=== PATIENT | male | born 1995 | race Caucasian/White ===

== ENCOUNTER 2023-01-04 20:03 | Emergency (ER) | payer SELFPAY ==
[~2023-01-04] VITALS: Ht 175.2 cm; Wt 127.0 kg
[~2023-01-04 20:03] MED LIST: OXYC-12 PO
[2023-01-04] MEDS ORDERED: Tetanus/Diphtheria/Pertussis (Acell) ADULT Vaccine 0.5 ML IM ONE (20:15)
--- NOTE | 2023-01-04 20:31 | ED Lower Extremity ---
General Chief Complaint: Laceration Stated Complaint: LACERATION Source: patient History of Present Illness Date Seen by Provider: Jan 04, 2023 Time Seen by Provider: 20:06 Initial Comments PT ARRIVES VIA EMS FROM HOME PT WITH LACERATION TO LEFT LOWER LEG PT STATES HE WAS CUTTING WOOD WITH AN ELECTRIC SAW, AND ACCIDENTALLY CUT HIS LEFT LOWER LEG PT IS ADAMANT THAT HE WAS NOT TRYING TO HURT HIMSELF AND DID NOT DO THIS ON PURPOSE PARENTS REPORTED TO EMS THAT PT HAS BEEN THREATENING TO HURT HIMSELF, AND PT HAD A MENTAL HEALTH SCREEN THIS MORNING BY [facility], AND WAS SENT HOME WITH SAFETY PLAN PT IS ADAMANT THAT HE WAS NOT TRYING TO HURT HIMSELF. PT STATES HE HAD A MENTAL HEALTH SCREEN THIS MORNING BECAUSE HE WAS HAVING PROBLEMS PUTTING HIS THOUGHTS TOGETHER PT HAS HISTORY OF PARANOID SCHIZOPHRENIA, PER EMS. LAST TETANUS IS UNKNOWN. PCP: VITO Allergies and Home Medications Allergies Coded Allergies: No Known Drug Allergies (Unverified , 05/23/10) Patient Home Medication List Home Medication List Reviewed: Yes Cephalexin (Cephalexin) 500 Mg Tablet, 500 MG PO QID Prescribed by: OWEN SINGER on 01/04/232141 Oxycodone Hcl/Acetaminophen (Percocet 5-325 Mg Tablet) 1 Each Tablet, 1 EACH PO Q6H PRN Prescribed by: HOA VENTURA on 05/23/102133 Review of Systems Constitutional: no symptoms reported Musculoskeletal: see HPI Skin: see HPI Psychiatric/Neurological: See HPI Past Xwqqkyc-Rxkazy-Pckbri Hx Patient Social History Tobacco Use?: Yes Tobacco type used: Cigarettes Smokeless Tobacco Frequency: Current Someday User Substance use?: Yes Substance type: Marijuana Alcohol Use?: Yes Alcohol type: Hard Liquor Alcohol Frequency: Once in a while Past Medical History Surgery/Hospitalization HX: schixophrenia Surgeries: No Respiratory: No Cardiac: No Neurological: No Genitourinary: No Gastrointestinal: No Musculoskeletal: No Endocrine: No HEENT: No Cancer: No Psychosocial: Yes Schizophrenia Integumentary: No Blood Disorders: No Physical Exam Vital Signs Vital Signs - First Documented 01/04/23 20:05 Temp 36.6 Pulse 68 Resp 16 B/P (MAP) 141/88 (105) Pulse Ox 98 O2 Delivery Room Air Capillary Refill : Height, Weight, BMI Height: '" Weight: lbs. oz. kg; BMI Method: General Appearance: WD/WN, no apparent distress Cardiovascular: regular rate, rhythm Respiratory: normal breath sounds Legs: left leg other (LEFT LOWER LEFT WITH 3 CM SLIGHTLY JAGGED LACERATION, SLIGHT OOZING OF BLOOD AT THIS TIME. WOUND IS INTO SUB Q TISSUES. NO BONY EXPOSURE. MOTOR/SENSORY/VASCULAR INTACT. 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, no motor/sensory deficits, alert, oriented x 3, other (FLAT AFFECT) Skin: normal color, warm/dry, other ( ABOVE) Procedures/Interventions Other Wound Location LEFT LOWER LEG Wound's Depth, Shape: irregular, sub Q Wound Explored: clean Irrigated w/ Saline (ccs): 1000 Anesthesia: Lidocaine w/ Epi (2%) Staple Repair: Stapler 35W (#6) Layer Closure?: 1 Sterile Dressing Applied?: Yes Progress/Results/Core Measures Results/Orders My Orders Orders - OWEN SINGER DO Tibia/Fibula, Left, 2 Views (01/04/23 20:05) Dipht/Pertuss(Acell)/Tet Adult (Dipht/Pe (01/04/23 20:15) Wound Dressing-Ed (01/04/23 20:14) Rx-Cephalexin Capsule (Rx-Keflex Capsule (01/04/23 21:42) Medications Given in ED Current Medications Medications Dose Ordered Sig/Torsten Route Start Time Stop Time Status Last Admin Dose Admin Diphtheria/ Tetanus/Acell Pertussis 0.5 ml ONCE ONCE IM 01/04/23 20:15 01/04/23 20:16 DC 01/04/23 20:29 0.5 ML Vital Signs/I&O 01/04/23 20:05 Temp 36.6 Pulse 68 Resp 16 B/P (MAP) 141/88 (105) Pulse Ox 98 O2 Delivery Room Air Progress Progress Note : Progress Note DTP VACCINE GIVEN PT REPEATEDLY AND ADAMANTLY DENIES THAT HE WAS TRYING TO HARM HIMSELF OR HAVING ANY THOUGHTS OF HARMING HIMSELF. PT HAS ALREADY HAD A MENTAL HEALTH SCREEN TODAY, AND WAS SENT HOME WITH SAFETY PLAN. PT WILL NOT BE ABLE TO HAVE ANOTHER SCREEN FOR 24 HOURS FROM TIME OF FIRST SCREEN. PT HAS AN APPOINTMENT WITH MENTAL HEALTH AT 0900 IN THE MORNING FOR MEDICATION ADJUSTMENTS. RN HAS CONTACTED PT'S PARENTS, WHOM HE LIVES WITH. THEY ARE TRYING TO FIND A RIDE HERE. WILL OBSERVE PT IN ER UNTIL PARENTS ARRIVE. 2205--PARENTS ARRIVE. THEY AGREE WITH PLAN OF CARE, AND VERIFY THAT PT HAS AN APPOINTMENT WITH MENTAL HEALTH IN THE MORNING AND FEEL COMFORTABLE TAKING PT HOME. REVIEWED PRIOR RECORDS, SINGLE ER VISIT 2010 FOR UNRELATED PROBLEM. DISCUSSED ANTICIPATED COURSE, SYMPTOMATIC TREATMENT, WOUND CARE, MEDICATION, NEED FOR FOLLOW UP AND RETURN PRECAUTIONS. Diagnostic Imaging Comments XRAYS LEFT TIB/FIB--PER RADIOLOGIST REPORT AT 2037 TECHNIQUE: Ap and lateral views of the tibia and fibula. FINDINGS: No fracture, focal osseous lesion or periosteal reaction. No radiopaque foreign body. Knee and ankle are normal in alignment. IMPRESSION: 1. No acute osseous abnormality. Reviewed: Reviewed by Me Departure Impression Primary Impression: Laceration of left lower leg Additional Impression: ARIELLE GARCIA GIVEN Disposition: HOME, SELF-CARE Condition: Stable Departure-Patient Inst. Decision time for Depature: 22:11 Referrals: NO,LOCAL PHYSICIAN (PCP/Family) Primary Care Physician Patient Instructions: Diphtheria and Tetanus Toxoids, and Acellular Pertussis Vaccine, Laceration Repair With [facility] Add. Discharge Instructions: CLEAN WOUND TWICE A DAY WITH ANTIBACTERIAL SOAP AND WATER, APPLY FRESH DRESSING TWICE A DAY TANIA OUT IN 10 DAYS--RETURN TO ER FOR STAPLE REMOVAL KEEP YOUR APPOINTMENT WITH MENTAL HEALTH IN THE MORNING. All discharge instructions reviewed with patient and/or family. Voiced understanding. Scripts Cephalexin (Cephalexin) 500 Mg Tablet 500 MG PO QID, #20 TAB 0 Refills Prov: OWEN SINGER DO 01/04/23 OWEN SINGER DO Jan 04, 2023 20:31
--- NOTE | 2023-01-04 20:35 | Diagnostic Imaging Report ---
TIBIA/FIBULA, LEFT, 2 VIEWS COMPARISON: None available. INDICATION: Left lower leg pain TECHNIQUE: Ap and lateral views of the tibia and fibula. FINDINGS: No fracture, focal osseous lesion or periosteal reaction. No radiopaque foreign body. Knee and ankle are normal in alignment. IMPRESSION: 1. No acute osseous abnormality. Dictated by: Dictated on workstation # [id number]
[2023-01-04] MEDS ORDERED: RX-CEPHALEXIN (KEFLEX) 250 MG CAP PPK#4 PO STA (21:42)
[2023-01-04] MEDS ORDERED: CEPH500T PO (21:42)
[2023-01-04 22:18] VITALS: BP 128/71
== END 2023-01-04 22:18 | disposition home or self-care (01) ==
LOC: EDUNIT# 20:03 → ER 20:06
DX: S81.812A Laceration without foreign body, left lower leg, initial encounter (principal); Z23 Encounter for immunization; F17.210 Nicotine dependence, cigarettes, uncomplicated; F17.290 Nicotine dependence, other tobacco product, uncomplicated; W27.0XXA Contact with workbench tool, initial encounter
CPT/HCPCS: 12002; 73590; 90715

== ENCOUNTER 2023-01-05 17:53 | Emergency (ER) | payer SELFPAY ==
[~2023-01-05] VITALS: Ht 175.3 cm; Wt 127.0 kg
[~2023-01-05 17:53] MED LIST changes: +CEPH500T PO
[2023-01-05] MEDS ORDERED: LACTATED RINGERS 1,000 ML 1,000 ML IV ONE ×2 (18:00→19:30)
[2023-01-05] MEDS ORDERED: ONDANSETRON INJECTION 4 MG/2 ML (SDV) IVP ONE (18:00)
--- NOTE | 2023-01-05 18:03 | ED General ---
General Stated Complaint: FALL Source of Information: Patient (VERY POOR HISTORIAN), EMS, Old Records History of Present Illness Date Seen by Provider: Jan 05, 2023 Time Seen by Provider: 17:50 Initial Comments PT ARRIVES VIA EMS FROM HOME EMS REPORT THAT THEY WERE CALLED BY PT'S PARENTS, WHO HE LIVES WITH THEY REPORTED TO EMS THAT HE HAD TAKEN A BENADRYL AND LAID DOWN AND THEN STARTED "JERKING" AND THEN VOMITED NO POST ICTAL SYMPTOMS NO INCONTINENCE NO INJURY REPORTED PT WAS SEEN HERE LAST NIGHT FOR A LACERATION TO LEFT LOWER LEG FROM AN ELECTRIC SAW PT WITH SCHIZOPHRENIA PT HAS REPEATEDLY AND ADAMANTLY DENIED ANY THOUGHTS OF SUICIDE OR SELF HARM, BOTH LAST NIGHT AND CONTINUES TO DENY ANY SUICIDAL THOUGHTS OR ATTEMPTS TODAY PT STATES HE DOES NOT KNOW WHY HE IS HERE. PT HAD A MENTAL HEALTH SCREEN YESTERDAY AFTERNOON, BY [facility], AND WAS SENT HOME WITH A SAFETY PLAN ( THIS WAS DONE PRIOR TO HIM BEING SEEN LAST NIGHT FOR THE LEG WOUND) PT HAD AN APPOINTMENT THIS MORNING WITH MENTAL HEALTH FOR MEDICATION ADJUSTMENTS. HE HAS NOT HAD ANY OF HIS MEDICATIONS TODAY, AND WAS REFERRED TO SOMEONE ELSE FOR MANAGEMENT OF MEDICATIONS. FAMILY REPORTED TO EMS THAT PT HAS BEEN MAKING THREATS OF SELF HARM YESTERDAY AND TODAY. THIS IS NOT A NEW PROBLEM FOR PT. PT DOES ADMIT THAT HE NEEDS HELP WITH THE VOICES IN HIS HEAD. PT REFUSES TO SIGN ANY PAPERWORK STATING "YOU'RE STEALING MY SOUL" PT HAS DENIED SMOKING, ALCOHOL OR DRUG USE Allergies and Home Medications Allergies Coded Allergies: No Known Drug Allergies (Unverified , 05/23/10) Patient Home Medication List Cephalexin (Cephalexin) 500 Mg Tablet, 500 MG PO QID Prescribed by: OWEN SINGER on 01/04/232141 Oxycodone Hcl/Acetaminophen (Percocet 5-325 Mg Tablet) 1 Each Tablet, 1 EACH PO Q6H PRN Prescribed by: HOA VENTURA on 05/23/102133 Review of Systems Review of Systems Constitutional: no symptoms reported EENTM: no symptoms reported Respiratory: no symptoms reported Cardiovascular: no symptoms reported Gastrointestinal: see HPI Genitourinary: no symptoms reported Musculoskeletal: no symptoms reported Skin: see HPI Psychiatric/Neurological: See HPI Hematologic/Lymphatic: No Symptoms Reported Immunological/Allergic: no symptoms reported Past Wlosebu-Ihlbcx-Msbifi Hx Patient Social History Tobacco Use?: No Substance use?: Yes (PT HAS DENIED, BUT UDS + FOR AMPHETAMINES/METHAMPHETAMINES) Substance type: Amphetamines, Methamphetamine Additional substance use comme: UDS + FOR METHAMPHETAMINES 01/05/23 Alcohol Use?: No Past Medical History Surgery/Hospitalization HX: SCHIZOPHRENIA Surgeries: No Respiratory: No Cardiac: No Neurological: No Genitourinary: No Gastrointestinal: No Musculoskeletal: No Endocrine: No HEENT: No Cancer: No Psychosocial: Yes Schizophrenia Integumentary: No Blood Disorders: No Physical Exam Vital Signs Vital Signs - First Documented 01/05/23 17:53 Temp 36.2 Pulse 72 Resp 15 B/P (MAP) 134/90 (105) O2 Delivery Room Air Capillary Refill : Height, Weight, BMI Height: '" Weight: lbs. oz. kg; 41.00 BMI Method: General Appearance: No Apparent Distress, WD/WN HEENT: PERRL/EOMI, Normal ENT Inspection Neck: Normal Inspection Respiratory: Normal Breath Sounds, No Accessory Muscle Use, No Respiratory Distress Cardiovascular: Regular Rate, Rhythm, No Murmur Gastrointestinal: Non Tender, Soft Back: Normal Inspection Extremity: Normal Capillary Refill, No Pedal Edema, Other (LEFT LOWER LEG WITH DRESSING IN PLACE AND IS CLEAN AND DRY. 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 DENIES SUICIDAL IDEATIONS. HE ADMITS TO HEARING VOICES. ) Skin: Normal Color, Warm/Dry Progress/Results/Core Measures Suspected Sepsis SIRS Temperature: Pulse: Respiratory Rate: Laboratory Tests 01/05/23 18:00: White Blood Count 8.2 Blood Pressure / Mean: Laboratory Tests 01/05/23 18:00: Creatinine 0.78, Platelet Count 244, Total Bilirubin 1.2H Results/Orders Lab Results Laboratory Tests Test 01/05/23 18:00 01/05/23 19:25 01/05/23 19:34 Range/Units White Blood Count 8.2 4.3-11.0 10^3/uL Red Blood Count 4.96 4.30-5.52 10^6/uL Hemoglobin 14.0 13.3-17.7 g/dL Hematocrit 41 40-54 % Mean Corpuscular Volume 83 80-99 fL Mean Corpuscular Hemoglobin 28 25-34 pg Mean Corpuscular Hemoglobin Concent 34 32-36 g/dL Red Cell Distribution Width 12.3 10.0-14.5 % Platelet Count 244 130-400 10^3/uL Mean Platelet Volume 11.6 9.0-12.2 fL Immature Granulocyte % (Auto) 0 % Neutrophils (%) (Auto) 64 42-75 % Lymphocytes (%) (Auto) 25 12-44 % Monocytes (%) (Auto) 8 0-12 % Eosinophils (%) (Auto) 2 0-10 % Basophils (%) (Auto) 1 0-10 % Neutrophils # (Auto) 5.3 1.8-7.8 10^3/uL Lymphocytes # (Auto) 2.1 1.0-4.0 10^3/uL Monocytes # (Auto) 0.7 0.0-1.0 10^3/uL Eosinophils # (Auto) 0.1 0.0-0.3 10^3/uL Basophils # (Auto) 0.1 0.0-0.1 10^3/uL Immature Granulocyte # (Auto) 0.0 0.0-0.1 10^3/uL Sodium Level 138 135-145 MMOL/L Potassium Level 3.4 L 3.6-5.0 MMOL/L Chloride Level 105 98-107 MMOL/L Carbon Dioxide Level 21 21-32 MMOL/L Anion Gap 12 5-14 MMOL/L Blood Urea Nitrogen 18 7-18 MG/DL Creatinine 0.78 0.60-1.30 MG/DL Estimat Glomerular Filtration Rate 125 BUN/Creatinine Ratio 23 Glucose Level 117 H 70-105 MG/DL Calcium Level 9.1 8.5-10.1 MG/DL Corrected Calcium 8.8 8.5-10.1 MG/DL Magnesium Level 2.2 1.6-2.4 MG/DL Total Bilirubin 1.2 H 0.1-1.0 MG/DL Aspartate Amino Transf (AST/SGOT) 68 H 5-34 U/L Alanine Aminotransferase (ALT/SGPT) 126 H 0-55 U/L Alkaline Phosphatase 49 40-136 U/L Total Creatine Kinase 168 30-200 U/L Creatine Kinase MB 2.2 <6.6 NG/ML Myoglobin 47.5 10.0-92.0 NG/ML Troponin I < 0.028 <0.028 NG/ML Total Protein 6.7 6.4-8.2 GM/DL Albumin 4.4 3.2-4.5 GM/DL Amylase Level 28 25-125 U/L Lipase 10 8-78 U/L TSH [place] Testing 0.53 0.35-4.94 UIU/ML Salicylates Level < 5.0 L 5.0-20.0 MG/DL Acetaminophen Level < 10 L 10-30 UG/ML Serum Alcohol < 10 <10 MG/DL SARS-CoV-2 RNA (RT-PCR) Not Detected Not Detecte Urine Color ORANGE Urine Clarity CLEAR Urine pH 6.0 5-9 Urine Specific [place] Range >=1.030 1.016-1.022 Urine Protein 2+ H NEGATIVE Urine Glucose (UA) TRACE H NEGATIVE Urine Ketones NEGATIVE NEGATIVE Urine Nitrite NEGATIVE NEGATIVE Urine Bilirubin 2+ H NEGATIVE Urine Urobilinogen >=8.0 < = 1.0 MG/DL Urine Leukocyte Esterase NEGATIVE NEGATIVE Urine RBC (Auto) NEGATIVE NEGATIVE Urine RBC 0-2 /HPF Urine WBC 0-2 /HPF Urine Squamous Epithelial Cells >50 H /HPF Urine Crystals PRESENT H /LPF Urine Amorphous Sediment FEW [place] URATES H /LPF Urine Bacteria TRACE /HPF Urine Casts NONE /LPF Urine Mucus LARGE H /LPF Urine Culture Indicated NO Urine Opiates Screen NEGATIVE NEGATIVE Urine Oxycodone Screen NEGATIVE NEGATIVE Urine Methadone Screen NEGATIVE NEGATIVE Urine Propoxyphene Screen NEGATIVE NEGATIVE Urine Barbiturates Screen NEGATIVE NEGATIVE Ur Tricyclic Antidepressants Screen NEGATIVE NEGATIVE Urine Phencyclidine Screen NEGATIVE NEGATIVE Urine Amphetamines Screen POSITIVE H NEGATIVE Urine Methamphetamines Screen POSITIVE H NEGATIVE Urine Benzodiazepines Screen NEGATIVE NEGATIVE Urine Cocaine Screen NEGATIVE NEGATIVE Urine Cannabinoids Screen NEGATIVE NEGATIVE My Orders Orders - OWEN SINGER DO Ed Iv/Invasive Line Start (01/05/23 17:55) Ekg Tracing (01/05/23 17:55) Monitor-Rhythm Ecg Trace Only (01/05/23 17:55) Acetaminophen (01/05/23 17:55) Alcohol (01/05/23 17:55) Amylase (01/05/23 17:55) Cbc And Automated Diff (01/05/23 17:55) Comprehensive Metabolic Panel (01/05/23 17:55) Creatine Kinase (01/05/23 17:55) Creatine Kinase Mb (01/05/23 17:55) Drug Screen Stat (Urine) (01/05/23 17:55) Lipase (01/05/23 17:55) Magnesium (01/05/23 17:55) Thyroid Analyzer (01/05/23 17:55) Ua Culture If Indicated (01/05/23 17:55) Myoglobin Serum (01/05/23 17:55) Troponin I Dougherty (01/05/23 17:55) Ed Iv/Invasive Line Start (01/05/23 17:55) Lactated Ringers 1,000 Ml (Lactated Ring (01/05/23 18:00) Ondansetron Injection (Ondansetron Inj (01/05/23 18:00) Salicylate (01/05/23 18:58) Covid 19 Inhouse Test (01/05/23 19:20) Ed Iv/Invasive Line Start (01/05/23 19:29) Medications Given in ED Current Medications Medications Dose Ordered Sig/Torsten Route Start Time Stop Time Status Last Admin Dose Admin Lactated Ringer's 1,000 ml @ 0 mls/hr Q0M ONCE IV 01/05/23 18:00 01/05/23 18:01 DC 01/05/23 18:31 999 MLS/HR Ondansetron HCl 4 mg ONCE ONCE IVP 01/05/23 18:00 01/05/23 18:01 DC 01/05/23 18:32 4 MG Vital Signs/I&O 01/05/23 17:53 Temp 36.2 Pulse 72 Resp 15 B/P (MAP) 134/90 (105) O2 Delivery Room Air Capillary Refill : Progress Note : Progress Note PLACED IN SECURE ROOM SUICIDE RISK STRATIFICATION PAPERWORK COMPLETED VITALS STABLE, AFEBRILE GIVEN: -IV FLUIDS -ZOFRAN LABS: -CBC NORMAL -CMP WITH K 3.4, BILI 1.2, AST 68, ALT 125 -AMYLASE/LIPASE NORMAL -TROPONIN NEGATIVE -TSH NORMAL -ETOH NEGATIVE -ACETAMINOPHEN NEGATIVE -SALICYLATES NEGATIVE -UDS AFTER EXPLAINING TESTS TO PATIENT, INCLUDING HEAD CT, PT INITIALLY AGREED TO CT HEAD. WHEN XRAY STAFF CAME TO TAKE PT TO CT, PT NOW ADAMANTLY REFUSES, STATES "IT'S TOO SCARY". PT REPEATEDLY WANTING TO LEAVE, WANTING TO CALL HIS MOM TO COME PICK HIM UP. WANTING TO LEAVE, STATES HE DOES NOT NEED TO BE HERE, AND CONTINUES TO ADAMANTLY DENY THAT HE IS HAVING ANY SUICIDAL OR MENTAL HEALTH ISSUES. 1949--DAD IS NOW IN ROOM AND PT IS CALMER, THEN LEFT AFTER A FEW MINUTES, DID MOTHER. 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 GAS LINE SERVICER CONTINUES TO STAY IN ROOM WITH PT. PT IS RESTING QUIETLY AT THIS TIME. 2213--MENTAL HEALTH SCREEN HAS BEEN COMPLETED AND PT IS BEING SENT HOME WITH A SAFETY PLAN. ECG Initial ECG Impression Date: Jan 05, 2023 Initial ECG Impression Time: 18:03 Initial ECG Rate: 64 Initial ECG Rhythm: Normal Sinus Initial ECG Intervals: Normal Initial ECG Impression: Normal Initial ECG Comparisson: No Previous ECG Available Comment INTERPRETED BY ME Departure Impression Primary Impression: Schizophrenia Additional Impression: Methamphetamine use Disposition: 01 HOME, SELF-CARE Condition: Stable Departure-Patient Inst. Decision time for Depature: 22:14 Referrals: NO,LOCAL PHYSICIAN (PCP/Family) Primary Care Physician Patient Instructions: Drug Misuse and Addiction (DC), Methamphetamine, OUTPT MENTAL HEALTH SERVICES, Substance Misuse Treatment Add. Discharge Instructions: NO METHAMPHETAMINE USE ONLY TAKE MEDICATIONS PRESCRIBED TO YOU BY YOUR DROriana FOLLOW UP WITH MENTAL HEALTH ARRANGED OWEN SINGER DO Jan 05, 2023 18:03
[2023-01-05 18:20] LABS: BASOPHILS # (AUTO) 0.1 10^3/uL (0.0-0.1); BASOPHILS % (AUTO) 1 % (0-10); EOSINOPHILS # (AUTO) 0.1 10^3/uL (0.0-0.3); EOSINOPHILS % (AUTO) 2 % (0-10); HEMATOCRIT 41 % (40-54); LYMPHOCYTES # (AUTO) 2.1 10^3/uL (1.0-4.0); LYMPHOCYTES % (AUTO) 25 % (12-44); MEAN CORPUSCULAR HEMOGLOBIN 28 pg (25-34); MEAN CORPUSCULAR HGB CONC 34 g/dL (32-36); MEAN CORPUSCULAR VOLUME 83 fL (80-99); MEAN PLATELET VOLUME 11.6 fL (9.0-12.2); MONOCYTES # (AUTO) 0.7 10^3/uL (0.0-1.0); MONOCYTES % (AUTO) 8 % (0-12); NEUTROPHILS # (AUTO) 5.3 10^3/uL (1.8-7.8); NEUTROPHILS % (AUTO) 64 % (42-75); PLATELET COUNT 244 10^3/uL (130-400); WHITE BLOOD COUNT 8.2 10^3/uL (4.3-11.0)
[2023-01-05 18:30] LABS: ALBUMIN 4.4 GM/DL (3.2-4.5); CHLORIDE 105 MMOL/L (98-107); POTASSIUM 3.4 MMOL/L (3.6-5.0); SODIUM 138 MMOL/L (135-145)
[2023-01-05 18:32] LABS: AMYLASE 28 U/L (25-125); CALCIUM 9.1 MG/DL (8.5-10.1)
[2023-01-05 18:33] LABS: GLUCOSE 117 MG/DL (70-105); TOTAL PROTEIN 6.7 GM/DL (6.4-8.2)
[2023-01-05 18:34] LABS: CARBON DIOXIDE 21 MMOL/L (21-32)
[2023-01-05 18:35] LABS: BILIRUBIN,TOTAL 1.2 MG/DL (0.1-1.0)
[2023-01-05 18:36] LABS: ALKALINE PHOSPHATASE 49 U/L (40-136)
[2023-01-05 18:37] LABS: CREATININE SERUM 0.78 MG/DL (0.60-1.30); GFR ESTIMATED 125
[2023-01-05 18:38] LABS: BUN/CREATININE RATIO 23
[2023-01-05 18:39] LABS: ACETAMINOPHEN < 10 UG/ML (10-30); MAGNESIUM 2.2 MG/DL (1.6-2.4)
[2023-01-05 18:40] LABS: ALANINE AMINOTRANSFERASE 126 U/L (0-55)
[2023-01-05 18:41] LABS: CREATINE KINASE 168 U/L (30-200); LIPASE 10 U/L (8-78)
[2023-01-05 18:49] LABS: CREATINE KINASE MB 2.2 NG/ML (<6.6)
[2023-01-05 19:01] LABS: TSH (THYROID ANALYZER) 0.53 UIU/ML (0.35-4.94)
[2023-01-05 20:01] LABS: AMPHETAMINE SCREEN, URINE POSITIVE (NEGATIVE); BARBITURATE SCREEN URINE NEGATIVE (NEGATIVE); CANNABINOID SCREEN, URINE NEGATIVE (NEGATIVE); COCAINE SCREEN URINE NEGATIVE (NEGATIVE); METHADONE STAT NEGATIVE (NEGATIVE); OPIATE SCREEN URINE NEGATIVE (NEGATIVE); OXYCODONE STAT NEGATIVE (NEGATIVE); PROPOXYPHENE STAT NEGATIVE (NEGATIVE); TRICYCLIC ANTIDEPRESSANTS SCRE NEGATIVE (NEGATIVE)
[2023-01-05 20:02] LABS: AMORPHOUS SEDIMENT,UR FEW AMOR URATES /LPF; BACTERIA,URINE TRACE /HPF; BILIRUBIN,URINE 2+ (NEGATIVE); CLARITY,URINE CLEAR; COLOR,URINE ORANGE; GLUCOSE, URINE (UA) TRACE (NEGATIVE); KETONES,URINE NEGATIVE (NEGATIVE); LEUKOCYTE ESTERASE ,URINE NEGATIVE (NEGATIVE); NITRITE,URINE NEGATIVE (NEGATIVE); PROTEIN,URINE 2+ (NEGATIVE); RBC,URINE 0-2 /HPF; SQUAMOUS EPITHELIAL CELL,UR >50 /HPF; WBC,URINE 0-2 /HPF
[2023-01-05 22:20] VITALS: BP 132/87
== END 2023-01-05 22:20 | disposition home or self-care (01) ==
LOC: EDUNIT# 17:53 → ER 17:54
DX: F20.9 Schizophrenia, unspecified (principal); F15.90 Other stimulant use, unspecified, uncomplicated; Z20.822 Contact with and (suspected) exposure to COVID-19
CPT/HCPCS: 80053; 80306; 81000; 82150; 82550; 82553; 83690; 83735; 83874; 84443; 84484; 85025; 87636; 93005; 99284; G0480 ×3; 36415; 80320; 80329